=== PATIENT | male | born 1950 | race Two or more races ===

== ENCOUNTER → 2018-10-31 06:00 | Outpatient (CLI) | payer OTHER ==
[~2018-10-31 06:00] MED LIST: CARDIZEM CD180 M1 PO; LANOXIN125 MCG PO
== END | disposition home or self-care (01) ==
LOC: LAB 06:00 → O/R 09:45 → EDSTATUS 09:45 → CIR.AMB 11-08 09:45 → EDSTATUS 11-08 09:45 → EDBD 11-08 09:45 → CIR.AMB 11-08 11:30
DX: N20.1 Calculus of ureter (principal); Z01.810 Encounter for preprocedural cardiovascular examination; Z01.812 Encounter for preprocedural laboratory examination

== ENCOUNTER 2020-01-09 07:15 | Day surgery (SDC) | payer OTHER | END 2020-01-09 20:15 | disposition home or self-care (01) | LOC: CIR.AMB 07:15 | PROVIDERS: ATTEND Urology | DX: N20.1 Calculus of ureter (principal) ==

== ENCOUNTER 2020-04-05 09:39 | Inpatient (IN) | payer OTHER | END 2020-04-07 12:55 | disposition home or self-care (01) | DRG 669 | LOC: CIR.AMB 09:39 → O/R 17:13 → SURH 17:13 | PROVIDERS: ADMIT Urology; ATTEND Urology | PROC: 0TC68ZZ Extirpation of Matter from Right Ureter, Via Natural or Artificial Opening Endoscopic (ICD-10-PCS; principal; 2020-04-05 13:30) | PROC: 0T9330Z Drainage of Right Kidney Pelvis with Drainage Device, Percutaneous Approach (ICD-10-PCS; 2020-04-06) | DX: N13.2 Hydronephrosis with renal and ureteral calculous obstruction (principal); I48.20 Chronic atrial fibrillation, unspecified; Z20.822 Contact with and (suspected) exposure to COVID-19; I10 Essential (primary) hypertension; Z79.01 Long term (current) use of anticoagulants ==

== ENCOUNTER → 2020-04-09 08:00 | Outpatient (CLI) | payer OTHER | END | disposition home or self-care (01) | LOC: LAB 08:00 → ADM 11:15 → CIR.AMB 04-16 10:30 → EDSTATUS 04-16 11:15 | PROVIDERS: ATTEND Urology | DX: Z20.828 Contact with and (suspected) exposure to other viral communicable diseases (principal); R31.0 Gross hematuria; N20.0 Calculus of kidney; N20.1 Calculus of ureter ==

== ENCOUNTER 2020-04-15 14:00 | Inpatient (IN) | payer OTHER ==
[~2020-04-15] VITALS: Ht 180.3 cm; Wt 113.4 kg
== END 2020-05-03 12:13 | disposition home or self-care (01) | DRG 660 ==
LOC: ER 14:00 → SURH 19:47 → SEC-K 19:47 → SURG 19:47 → SURH 04-19 19:00 → SURG 04-19 19:00 → SURH 05-03 12:13
PROVIDERS: ADMIT Urology; ATTEND Urology
PROC: 0T133JD Bypass Right Kidney Pelvis to Cutaneous with Synthetic Substitute, Percutaneous Approach (ICD-10-PCS; principal; 2020-04-15 20:00)
PROC: 8E0ZXY6 Isolation (ICD-10-PCS; 2020-04-19)
PROC: 0TF68ZZ Fragmentation in Right Ureter, Via Natural or Artificial Opening Endoscopic (ICD-10-PCS; 2020-04-19)
PROC: 0T25X0Z Change Drainage Device in Kidney, External Approach (ICD-10-PCS; 2020-04-19)
PROC: 0TPB80Z Removal of Drainage Device from Bladder, Via Natural or Artificial Opening Endoscopic (ICD-10-PCS; 2020-04-23)
DX: N99.528 Other complication of incontinent external stoma of urinary tract (principal); N13.6 Pyonephrosis; Y83.8 Other surgical procedures as the cause of abnormal reaction of the patient, or of later complication, without mention of misadventure at the time of the procedure; I10 Essential (primary) hypertension; B96.1 Klebsiella pneumoniae [K. pneumoniae] as the cause of diseases classified elsewhere

== ENCOUNTER 2020-06-07 11:00 | Inpatient (IN) | payer OTHER ==
[~2020-06-07] VITALS: Ht 175.3 cm; Wt 124.7 kg
== END 2020-06-18 12:52 | disposition home or self-care (01) | DRG 661 ==
LOC: SURG 06-14 06:00 → O/R 06-14 06:00 → SURH 06-14 07:00 → SURG 06-14 15:00
PROVIDERS: ADMIT Urology; ATTEND Urology
PROC: 0T1 Urinary System, Bypass (ICD-10-PCS; principal; 2020-06-14 07:00)
DX: N13.0 Hydronephrosis with ureteropelvic junction obstruction (principal); K59.09 Other constipation